=== PATIENT | female | born 1995 | race Caucasian/White ===

== ENCOUNTER → 2017-07-29 | Outpatient (CLI) | payer OTHER | END | disposition home or self-care (01) | LOC: US 09:51 | DX: O26.842 Uterine size-date discrepancy, second trimester (principal); Z3A.25 25 weeks gestation of pregnancy | CPT/HCPCS: 76805 ==

== ENCOUNTER → 2017-08-08 | Outpatient (CLI) | payer OTHER ==
[2017-08-08 12:29] LABS: TYPE AND SCREEN 1 1
== END | disposition home or self-care (01) ==
LOC: LAB 10:23
DX: O09.92 Supervision of high risk pregnancy, unspecified, second trimester (principal); Z3A.26 26 weeks gestation of pregnancy
CPT/HCPCS: 36415; 86850; 86900; 86901; J2791